=== PATIENT | female | born 1970 | race Caucasian/White ===

== ENCOUNTER 2017-02-13 15:31 | Emergency (ER) | payer OTHER ==
[~2017-02-13] VITALS: Ht 162.6 cm; Wt 94.3 kg
[2017-02-13 15:31] VITALS: BP_SYST 137
[~2017-02-13 15:31] MED LIST: ACYC800T PO; ASPI-1063 PO; FAMO20TA8 PO; PRED20TA PO; TRAM50TA92 PO
[2017-02-13] MEDS ORDERED: LORazepam 2 MG/ML VIAL (FOR ER USE) IVP ONE (16:15)
[2017-02-13] MEDS ORDERED: ASPIRIN 81 MG TAB.CHEW PO ONE (16:15)
[2017-02-13] MEDS ORDERED: ONDANSETRON HCL 4 MG/2 ML VIAL IVP ONE (16:30)
[2017-02-13 16:32] LABS: BASOPHILS % (AUTO) 0.6 % (0.0-2.0); EOSINOPHILS # (AUTO) 0.3 K/uL (0.0-0.4); EOSINOPHILS % (AUTO) 3.8 % (0.0-4.0); HEMATOCRIT 40.7 % (36-48); HEMOGLOBIN 14.2 g/dL (12.0-16.0); LYMPHOCYTES % (AUTO) 29.3 % (20.5-51.5); MEAN CORPUSCULAR HEMOGLOBIN 32 pg (27-31); MEAN CORPUSCULAR HGB CONC 35 % (32-36); MEAN CORPUSCULAR VOLUME 91 fL (79.0-98.0); MONOCYTES # (AUTO) 0.5 K/uL (0.0-1.0); MONOCYTES % (AUTO) 7.7 % (1.7-9.3); NEUTROPHILS # (AUTO) 4.1 K/uL (1.8-7.7); NEUTROPHILS % (AUTO) 58.6 % (40.0-70.0); PLATELET COUNT (AUTO) 281 K/uL (130-430); RED CELL DISTRIBUTION WIDTH 12.1 % (9.0-15.0); WHITE BLOOD COUNT (AUTO) 6.9 K/uL (4.8-10.8)
[2017-02-13 16:40] LABS: CALCIUM 8.5 mg/dL (8.4-11.0); CREATININE 0.77 mg/dL (0.55-1.30); POTASSIUM 3.3 mmol/L (3.5-5.1)
[2017-02-13 16:45] LABS: ALBUMIN 3.7 g/dL (3.4-4.8); TOTAL BILIRUBIN 0.4 mg/dL (0.0-1.0); TOTAL PROTEIN, SERUM 7.7 g/dL (6.4-8.3)
[2017-02-13 17:23] VITALS: BP_SYST 117
== END 2017-02-13 17:23 | disposition home or self-care (01) ==
LOC: SED 15:31
DX: F41.9 Anxiety disorder, unspecified (principal); R07.89 Other chest pain; R03.0 Elevated blood-pressure reading, without diagnosis of hypertension; R05 Cough; M79.602 Pain in left arm; G43.909 Migraine, unspecified, not intractable, without status migrainosus; Z90.49 Acquired absence of other specified parts of digestive tract; Z90.710 Acquired absence of both cervix and uterus
CPT/HCPCS: 36415; 71010; 80053; 81025; 84484; 85025; 93005; 96374; 96375; 99285; J2060; J2405

== ENCOUNTER 2018-07-01 09:02 | Emergency (ER) | payer OTHER ==
[~2018-07-01] VITALS: Ht 162.6 cm; Wt 95.3 kg
[~2018-07-01 09:02] MED LIST changes: -ASPI-1063 PO; +ASPI-1154 PO
[2018-07-01 09:08] VITALS: BP_SYST 145
--- NOTE | 2018-07-01 09:08 | NUR ---
Patient to ER bed 8 to gown for evaluation. Side rails up.
--- NOTE | 2018-07-01 09:10 | NUR ---
Pt complains of severe headached since yesterday afternoon. Pt states she took ibuprofen 800 mg with no relief. Pt is nauseous with sensitivity to light. Pt denies fever. No other injuries/complaints per patient or noted.
--- NOTE | 2018-07-01 09:11 | NUR ---
ER Dr. Briscoe at bedside examining patient.
[2018-07-01] MEDS ORDERED: PROCHLORPERAZINE EDISYLATE 10 MG/2 ML VIAL IM ONE (09:15)
[2018-07-01] MEDS ORDERED: KETOROLAC TROMETHAMINE 60 MG/2 ML VIAL IM ONE (09:15)
--- NOTE | 2018-07-01 09:28 | NUR ---
Medications were given, pt tolerated well. No adverse reaction, will continue to monitor.
--- NOTE | 2018-07-01 10:50 | NUR ---
Pt resting comfortably in hospital bed. Pt states headache has decreased and feels a little better.
[2018-07-01 11:57] VITALS: BP_SYST 127
--- NOTE | 2018-07-01 11:57 | NUR ---
Patient given written and verbal discharge instructions and verbalizes understanding. ER MD discussed with patient the results and treatment provided. Patient in stable condition. ID arm band removed. Rx of norco 5/325 #15 given. Patient educated on pain management and to follow up with PMD. Pain Scale 3/10. Opportunity for questions provided and answered. Medication side effect fact sheet provided.
== END 2018-07-01 11:57 | disposition home or self-care (01) ==
LOC: SED 09:02
DX: G43.909 Migraine, unspecified, not intractable, without status migrainosus (principal); I10 Essential (primary) hypertension; Z90.89 Acquired absence of other organs; Z90.49 Acquired absence of other specified parts of digestive tract; Z90.710 Acquired absence of both cervix and uterus; Z79.899 Other long term (current) drug therapy
CPT/HCPCS: 96372; 99284; J0780; J1885

== ENCOUNTER 2018-10-20 20:56 | Emergency (ER) | payer OTHER ==
[~2018-10-20] VITALS: Ht 162.6 cm; Wt 90.7 kg
[2018-10-20 21:03] VITALS: BP_SYST 150
--- NOTE | 2018-10-20 21:06 | NUR ---
Note андрейyang in EDM - 10/20/18 at 2114 by [email or web address] Pt brought by self, A&Ox4, pt presents to ER with neck pain and headache after mechanical fall , pt states she was squatting at the gym and she lost balance hitting excersise bar, skin pink and warm, respirations even and unlabored.
--- NOTE | 2018-10-20 21:07 | NUR ---
Patient to ER bed 08 to gown for evaluation. Side rails up.
--- NOTE | 2018-10-20 21:08 | NUR ---
Dr Macario at bedside examining patient
[2018-10-20] MEDS ORDERED: METOCLOPRAMIDE HCL 10 MG/2 ML VIAL IVP ONE (21:15)
[2018-10-20] MEDS ORDERED: MORPHINE 4 MG/ML INJ. SYRINGE IVP ONE (21:15)
--- NOTE | 2018-10-20 21:26 | NUR ---
PT medicated with Reglan IVP and Morphine IVP per MD order. Tolerated well. Pt placed on phototypesetting equipment monitor. Will cont. to monitor.
--- NOTE | 2018-10-20 21:37 | NUR ---
PT went to radiology via wheelchair.
--- NOTE | 2018-10-20 22:00 | NUR ---
Pt states she had a partial hysterectomy as a prior surgery.
[2018-10-20] MEDS ORDERED: KETOROLAC TROMETHAMINE 30 MG VIAL IVP ONE (22:15)
--- NOTE | 2018-10-20 22:27 | NUR ---
Pt states pain is 5/10. Medicated with Toradol IVP per MD order. Tolerated well. Will cont. to monitor.
[2018-10-20 22:52] VITALS: BP_SYST 150
--- NOTE | 2018-10-20 22:52 | NUR ---
Patient given written and verbal discharge instructions and verbalizes understanding. ER MD Dr. Amirah Dunbar discussed with patient the results and treatment provided. Patient in stable condition. ID arm band removed. IV catheter removed intact and dressing applied, no active bleeding. Rx of Emelle, robaxin, reglan given. Patient educated on pain management and to follow up with PMD within 2-3 days. Pain Scale 0/10. Opportunity for questions provided and answered. Medication side effect fact sheet provided.
== END 2018-10-20 22:52 | disposition home or self-care (01) ==
LOC: SED 20:56
DX: S10.93XA Contusion of unspecified part of neck, initial encounter (principal); G43.909 Migraine, unspecified, not intractable, without status migrainosus; Z90.49 Acquired absence of other specified parts of digestive tract; Z90.89 Acquired absence of other organs; Z90.710 Acquired absence of both cervix and uterus; Z79.899 Other long term (current) drug therapy; W18.09XA Striking against other object with subsequent fall, initial encounter; Y93.89 Activity, other specified; Y92.89 Other specified places as the place of occurrence of the external cause; Y99.8 Other external cause status
CPT/HCPCS: 70450; 72125; 96374; 96375; 99284; J1885; J2270; J2765

== ENCOUNTER 2019-05-28 20:58 | Emergency (ER) | payer OTHER ==
[~2019-05-28] VITALS: Ht 162.6 cm; Wt 90.7 kg
[2019-05-28 21:04] VITALS: BP_SYST 138
--- NOTE | 2019-05-28 22:00 | NUR ---
Patient to NOEMI Jimenes for evaluation.
--- NOTE | 2019-05-28 22:05 | NUR ---
Patient to ER via triage for evaluation of right elbow pain with headache x 2 days after having a non-syncopal trip and fall. No neck or back pain, no LOC reported. Patient is awake, alert and oriented in no acute distress, vital signs stable, respirations even and unlabored, skin warm and dry to touch. Patient able to ambulate without difficulty with slow, steady gait to Hallway bed, able to move all extremities. Awaiting evaluation by ER MD, will continue to observe and assess.
--- NOTE | 2019-05-28 22:15 | NUR ---
Patient moved to bed 8 to await MD evaluation.
[2019-05-28] MEDS ORDERED: MORPHINE 4 MG/ML INJ. SYRINGE IM ONE (22:30)
--- NOTE | 2019-05-28 22:30 | NUR ---
ER at bedside examining patient.
[2019-05-28 23:20] VITALS: BP_SYST 130
--- NOTE | 2019-05-28 23:20 | NUR ---
Patient given written and verbal discharge instructions and verbalizes understanding. ER MD discussed with patient the results and treatment provided. Patient in stable condition. ID arm band removed. Rx of Motrin given. Patient educated on pain management and to follow up with PMD. Pain Scale 0. Opportunity for questions provided and answered. Medication side effect fact sheet provided. Patient left ER in no acute distress, tolerating splint and sling, no adverse reaction noted to medication.
== END 2019-05-28 23:20 | disposition home or self-care (01) ==
LOC: SED 20:58
DX: S42.401A Unspecified fracture of lower end of right humerus, initial encounter for closed fracture (principal); G43.909 Migraine, unspecified, not intractable, without status migrainosus; Z79.899 Other long term (current) drug therapy; V00.131A Fall from skateboard, initial encounter; Y93.51 Activity, roller skating (inline) and skateboarding; Y92.009 Unspecified place in unspecified non-institutional (private) residence as the place of occurrence of the external cause; Y99.8 Other external cause status
CPT/HCPCS: 73080; 96372; 99283; J2270

== ENCOUNTER 2019-06-21 10:02 | Emergency (ER) | payer OTHER ==
[~2019-06-21] VITALS: Ht 162.6 cm; Wt 86.2 kg
[2019-06-21 10:09] VITALS: BP_SYST 119
--- NOTE | 2019-06-21 10:14 | NUR ---
Patient to ER bed 4 to gown for evaluation. Side rails up. Report given to Stas STRANGE.
--- NOTE | 2019-06-21 10:20 | NUR ---
NOEMI Gibson at bedside examining patient.
--- NOTE | 2019-06-21 10:25 | NUR ---
PT PRESENTS TO E C/O MID ABD PAIN X 3 DAYS W/ NAUSEA/VOMITING/DIARRHEA. PT HAS NO ACUTE DISTRESS NOTED.
[2019-06-21] MEDS ORDERED: ONDANSETRON HCL 4 MG/2 ML VIAL IVP ONE (10:30)
[2019-06-21] MEDS ORDERED: MORPHINE 4 MG/ML INJ. SYRINGE IVP ONE (10:30)
[2019-06-21] MEDS ORDERED: NACL 0.9% 1,000 ML IV ONE (10:30)
[2019-06-21 10:47] LABS: BASOPHILS # (AUTO) 0.2 K/uL (0.0-0.2); EOSINOPHILS # (AUTO) 0.1 K/uL (0.0-0.4); EOSINOPHILS % (AUTO) 1.3 % (0.0-4.0); HEMATOCRIT 43.1 % (36-48); HEMOGLOBIN 15.2 g/dL (12.0-16.0); LYMPHOCYTES # (AUTO) 1.6 K/uL (1.0-5.5); LYMPHOCYTES % (AUTO) 20.9 % (20.5-51.5); MEAN CORPUSCULAR HEMOGLOBIN 33 pg (27-31); MEAN CORPUSCULAR HGB CONC 35 % (32-36); MEAN CORPUSCULAR VOLUME 93 fL (79.0-98.0); MONOCYTES # (AUTO) 0.6 K/uL (0.0-1.0); MONOCYTES % (AUTO) 7.8 % (1.7-9.3); NEUTROPHILS # (AUTO) 5.3 K/uL (1.8-7.7); PLATELET COUNT (AUTO) 267 K/uL (130-430); RED BLOOD CELL COUNT(AUTO) 4.63 MIL/uL (4.2-6.2); RED CELL DISTRIBUTION WIDTH 12.3 % (9.0-15.0); WHITE BLOOD COUNT (AUTO) 7.8 K/uL (4.8-10.8)
--- NOTE | 2019-06-21 10:50 | NUR ---
Pt medicated tolerated well.Continuing to monitor.
[2019-06-21 10:54] LABS: CALCIUM 9.1 mg/dL (8.4-11.0); CREATININE 0.82 mg/dL (0.55-1.30); POTASSIUM 3.5 mmol/L (3.5-5.1)
[2019-06-21 10:58] LABS: ALBUMIN 3.7 g/dL (3.4-4.8); TOTAL BILIRUBIN 0.5 mg/dL (0.0-1.0)
--- NOTE | 2019-06-21 11:12 | NUR ---
PT REPORTS PAIN RESOLVING.
[2019-06-21] MEDS ORDERED: LOPERAMIDE HCL 2 MG CAPSULE PO ONE (11:30)
[2019-06-21 11:49] VITALS: BP_SYST 118
--- NOTE | 2019-06-21 11:51 | NUR ---
Patient given written and verbal discharge instructions and verbalizes understanding. ER MD discussed with patient the results and treatment provided. Patient in stable condition. ID arm band removed. IV catheter removed intact and dressing applied, no active bleeding. Rx of Imodium and Zofran given. Patient educated on pain management and to follow up with PMD. Pain Scale 0/10. Opportunity for questions provided and answered. Medication side effect fact sheet provided.
== END 2019-06-21 11:51 | disposition home or self-care (01) ==
LOC: SED 10:02
DX: R10.30 Lower abdominal pain, unspecified (principal); R11.2 Nausea with vomiting, unspecified; R19.7 Diarrhea, unspecified; G43.909 Migraine, unspecified, not intractable, without status migrainosus; R50.9 Fever, unspecified; Z90.49 Acquired absence of other specified parts of digestive tract; Z90.710 Acquired absence of both cervix and uterus; Z79.899 Other long term (current) drug therapy
CPT/HCPCS: 36415; 80053; 83690; 85025; 96361; 96374; 96375; 99283; J2270; J2405; J7030

== ENCOUNTER 2019-07-29 14:07 | Emergency (ER) | payer OTHER ==
[~2019-07-29] VITALS: Ht 162.6 cm; Wt 77.1 kg
--- NOTE | 2019-07-29 14:08 | NUR ---
Placed in room 02 . Placed on cardiac surgeon, blood pressure machine and pulse oximeter. To gown for exam. Side rails up. Report given to Jina STRANGE
[2019-07-29 14:10] VITALS: BP_SYST 165
[2019-07-29] MEDS ORDERED: methylPREDNISolone SOD SUCC/PF 62.5 MG/ML VIAL IM ONE (14:15)
--- NOTE | 2019-07-29 14:15 | NUR ---
Patient presented to ER with right side facial droopning and migraine pain. Patient A&Ox4, afebrile, ambulatory to ER, arrived with , pain 06/01, denies N/V/D. NIH stroke scale assessment complete upon arrival. Patient states migraine started yesterday, patient self medicated with Maxatrol this am. Patient states facial drooping started at 0630 this am but "got worse" while she was at work and decided to seek medical attention. PAtient states she has a Hx of migraines.
--- NOTE | 2019-07-29 15:17 | NUR ---
ER Dr. Girard at bedside examining patient.
[2019-07-29] MEDS ORDERED: KETOROLAC TROMETHAMINE 60 MG/2 ML VIAL IM ONE (15:30)
[2019-07-29 17:02] VITALS: BP_SYST 128
--- NOTE | 2019-07-29 17:04 | NUR ---
Patient given written and verbal discharge instructions and verbalizes understanding. ER MD discussed with patient the results and treatment provided. Patient in stable condition. ID arm band removed. Rx of Prednisone, Acyclovir, Motrin given. Patient educated on pain management and to follow up with PMD. Pain Scale 0/10 Opportunity for questions provided and answered. Medication side effect fact sheet provided.
== END 2019-07-29 14:08 | disposition home or self-care (01) ==
LOC: SED 14:07
DX: G51.0 Bell's palsy (principal); Z79.899 Other long term (current) drug therapy
CPT/HCPCS: 70450; 81025; 96372; 99284; J1885; J2930

== ENCOUNTER 2022-01-14 15:14 | Emergency (ER) | payer OTHER ==
[~2022-01-14] VITALS: Ht 162.6 cm; Wt 93.4 kg
[~2022-01-14 15:14] MED LIST changes: +ACYC-133 PO; -ACYC800T PO; -ASPI-1154 PO; +ASPI-1457 PO
[2022-01-14 15:27] VITALS: BP_SYST 163
[2022-01-14] MEDS ORDERED: MORPHINE 4 MG INJ. 4 MG/ML VIAL IVP ONE (16:00)
[2022-01-14] MEDS ORDERED: ONDANSETRON HCL 4 MG/2 ML VIAL IVP ONE (16:00)
[2022-01-14] MEDS ORDERED: NACL 0.9% 1,000 ML IV ONE (16:00)
[2022-01-14 16:43] LABS: BASOPHILS # (AUTO) 0.1 K/uL (0.0-0.2); BASOPHILS % (AUTO) 0.7 % (0.0-2.0); EOSINOPHILS % (AUTO) 0.2 % (0.0-4.0); HEMATOCRIT 45.9 % (36-48); HEMOGLOBIN 15.7 g/dL (12.0-16.0); MEAN CORPUSCULAR HEMOGLOBIN 31 pg (27-31); MEAN CORPUSCULAR HGB CONC 34 % (32-36); MEAN CORPUSCULAR VOLUME 91 fL (79.0-98.0); MONOCYTES # (AUTO) 0.8 K/uL (0.0-1.0); MONOCYTES % (AUTO) 6.5 % (1.7-9.3); NEUTROPHILS # (AUTO) 9.8 K/uL (1.8-7.7); NEUTROPHILS % (AUTO) 76.6 % (40.0-70.0); PLATELET COUNT (AUTO) 279 K/uL (130-430); RED BLOOD CELL COUNT(AUTO) 5.06 MIL/uL (4.2-6.2); RED CELL DISTRIBUTION WIDTH 12.5 % (9.0-15.0); WHITE BLOOD COUNT (AUTO) 12.8 K/uL (4.8-10.8)
[2022-01-14 16:56] LABS: BILIRUBIN,URINE NEGATIVE (NEGATIVE); BLOOD, URINE NEGATIVE (NEGATIVE); CLARITY/URINE CLEAR (CLEAR); COLOR,URINE YELLOW (YELLOW); GLUCOSE,URINE NEGATIVE (NEGATIVE); KETONES,URINE NEGATIVE (NEGATIVE); LEUKOCYTE ESTERASE ,URINE NEGATIVE (NEGATIVE); NITRITE, URINE NEGATIVE (NEGATIVE); PROTEIN URINE NEGATIVE (NEGATIVE); UROBILINOGEN,URINE 0.2 (0.2-1.0)
[2022-01-14 17:09] LABS: CALCIUM 8.7 mg/dL (8.4-11.0); CREATININE 0.65 mg/dL (0.55-1.30); POTASSIUM 3.5 mmol/L (3.5-5.1)
[2022-01-14 17:20] LABS: ALBUMIN 3.9 g/dL (3.4-4.8); TOTAL BILIRUBIN 0.4 mg/dL (0.0-1.0)
[2022-01-14] MEDS ORDERED: ONDA-8 TL (18:57)
[2022-01-14 19:15] VITALS: BP_SYST 146
== END 2022-01-14 19:15 | disposition home or self-care (01) ==
LOC: SED 15:14
DX: R10.33 Periumbilical pain (principal); R11.10 Vomiting, unspecified; R19.7 Diarrhea, unspecified; Z79.899 Other long term (current) drug therapy
CPT/HCPCS: 36415; 80053; 81003; 81025; 83690; 84702; 85025; 96361; 96374; 96375; 99284; J2270; J2405; J7030

== ENCOUNTER 2022-12-30 15:13 | Emergency (ER) | payer OTHER ==
[~2022-12-30] VITALS: Ht 157.5 cm; Wt 94.8 kg
[~2022-12-30 15:13] MED LIST changes: +ONDA-8 TL
[2022-12-30 15:15] VITALS: BP_SYST 156
--- NOTE | 2022-12-30 15:19 | NUR ---
UPON ASSESSMENT, PT HAVING CVA SYMPTOMS, MD STALLWORTH CALLED TO TRIAGE FOR POSSIBLE STROKE. UPON MD STALLWORTH ASSESSMENT, CALLED CODE STROKE. PT TO ER BED 5. CARE REPALIE DRIVER.
--- NOTE | 2022-12-30 15:21 | NUR ---
PT TAKEN TO CT LAST KNOWN WELL TIME WAS 1420 ACCORDING TO . IS AT BEDSIDE. [facility] NEUROLOGIST CONSULT HAS BEEN COMPLETED. VSS, PT HAS SLURRED SPEECH LEFT FACIAL DROOP UNDERSTANDABLE SPEECH, WEAKNESS TO LEFT ARM AND NUMBNESS TO LEFT LEG. PT STATES SHE HAS ABD PAIN THAT RADIATES TO BACK (FLANK AREA) AWAITING NEW ORDERS FROM NEURO AND ED DR. DANIELA CHAN TO MONITOR.
[2022-12-30] MEDS ORDERED: IOHEXOL 350 mgI/mL, 150 ML INFUS..BTL IV ONE (15:35)
[2022-12-30 15:42] LABS: BASOPHILS # (AUTO) 0.1 K/uL (0.0-0.2); BASOPHILS % (AUTO) 1.1 % (0.0-2.0); EOSINOPHILS # (AUTO) 0.1 K/uL (0.0-0.4); EOSINOPHILS % (AUTO) 0.9 % (0.0-4.0); HEMATOCRIT 44.4 % (36-48); HEMOGLOBIN 15.7 g/dL (12.0-16.0); LYMPHOCYTES # (AUTO) 1.9 K/uL (1.0-5.5); LYMPHOCYTES % (AUTO) 23.8 % (20.5-51.5); MEAN CORPUSCULAR HEMOGLOBIN 33 pg (27-31); MEAN CORPUSCULAR HGB CONC 35 % (32-36); MEAN CORPUSCULAR VOLUME 93 fL (79.0-98.0); MONOCYTES # (AUTO) 0.5 K/uL (0.0-1.0); MONOCYTES % (AUTO) 6.2 % (1.7-9.3); NEUTROPHILS # (AUTO) 5.3 K/uL (1.8-7.7); PLATELET COUNT (AUTO) 242 K/uL (130-430); RED CELL DISTRIBUTION WIDTH 12.5 % (9.0-15.0); WHITE BLOOD COUNT (AUTO) 7.8 K/uL (4.8-10.8)
[2022-12-30] MEDS ORDERED: methylPREDNISolone SOD SUCC/PF 62.5 MG/ML VIAL IVP ONE (15:45)
[2022-12-30] MEDS ORDERED: DIPHENHYDRAMINE INJ 50 MG/ML VIAL IVP ONE (15:45)
[2022-12-30 16:04] LABS: ANION GAP 10 (5-15); CALCIUM 9.5 mg/dL (8.4-11.0); CHLORIDE 103 mmol/L (98-107); CREATININE 0.76 mg/dL (0.55-1.30); GLUCOSE 123 mg/dL (70-99); UREA NITROGEN, BLOOD 13 mg/dL (8-21)
[2022-12-30 16:13] LABS: ALANINE AMINOTRANSFERASE 83 U/L (12-78); ALBUMIN 4.1 g/dL (3.4-4.8); ASPARTATE AMINOTRANSFERASE 92 U/L (10-37); TOTAL BILIRUBIN 0.7 mg/dL (0.0-1.0)
[2022-12-30 16:14] LABS: GFR AFRICAN AMERICAN 104 mL/min (>90)
[2022-12-30] MEDS ORDERED: ONDANSETRON HCL 4 MG/2 ML VIAL IVP ONE (16:30)
[2022-12-30] MEDS ORDERED: MORPHINE 4 MG INJ. 4 MG/ML VIAL IVP ONE ×2 (16:30→19:15)
--- NOTE | 2022-12-30 18:11 | NUR ---
PT RESTING PAIN HAS LESSENED ACCORDING TO PT. WILL CONT TO MONITOR.
--- NOTE | 2022-12-30 19:05 | NUR ---
PT HAS BEEN NOTIFIED OF PLAN OF CARE, PT STATES SHE IS HAVING 8/10 FLANK PAIN REOCCURING, MD NOTIFIED. VSS, NAD, EVEN AND UNLABORED RESPIRATIONS.
--- NOTE | 2022-12-30 19:27 | NUR ---
REPORT TO ANDREA STRANGE
--- NOTE | 2022-12-30 20:50 | NUR ---
Male visitor present in room with patient.
[2022-12-30 23:45] VITALS: BP_SYST 120
--- NOTE | 2022-12-30 23:51 | NUR ---
Patient to be transferred to [facility]. Is being transferred due to insurance purposes. Receiving facility has accepting physician and available space. ER physician has signed transfer form. Patient or responsible republican has agreed to transfer and signed form. Patient belongings inventoried and will be sent with patient. Copy of nursing notes, lab reports, EKG, Physicians Orders and X-rays to be sent with patient. Report called to ALIE Fong at receiving facility. Receiving physician is Dr. Vaughn. [facility] is present at this time.
== END 2022-12-30 23:52 | disposition short-term general hospital (02) ==
LOC: SED 15:13
DX: I63.9 Cerebral infarction, unspecified (principal); R53.1 Weakness; R07.9 Chest pain, unspecified; R55 Syncope and collapse; R20.2 Paresthesia of skin; I10 Essential (primary) hypertension; Z79.899 Other long term (current) drug therapy; Z20.822 Contact with and (suspected) exposure to COVID-19
CPT/HCPCS: 99291; 70496; 96374; 76705; 71045; 96375; 87426; 80053; 85025; 86886; 86900; 86901; 84484; 36415; 93005; 70498; 99292; 96376; 70450; 76376; J2405; J2270; Q9967

== ENCOUNTER 2023-05-10 19:57 | Emergency (ER) | payer OTHER ==
[~2023-05-10] VITALS: Ht 162.6 cm; Wt 95.3 kg
--- NOTE | 2023-05-10 20:10 | NUR ---
PT TO CT VIA [facility]YALA. CT AND CHEST XRAY COMPLETED. PT BACK TO ROOM 3. EKG AND IV ACCESS GAINED. AWAITING ADDITIONAL ORDERS
--- NOTE | 2023-05-10 20:22 | NUR ---
MARLEN FAUSTIN CALLED AT 2004, LEFT SIDED FACIAL DROOP NOTED ON EXAMINATION X1 HOUR, PATIENT PRESENTS WITH CHEST PAIN, LEFT SIDED WEAKNESS, LEFT SHOULDER PAIN X1 DAY, DRIFT NOTED WITH LEFT SIDE EXTREMITIES, REPORT GIVEN TO JAEL STRANGE, PATIENT PLACED IN ED BED 3
[2023-05-10 20:24] VITALS: BP_SYST 124
[2023-05-10] MEDS ORDERED: iohexoL 350 mgI/mL, 100 ML INFUS..BTL IV ONE (20:36)
[2023-05-10 20:46] LABS: BASOPHILS # (AUTO) 0.1 K/uL (0.0-0.2); BASOPHILS % (AUTO) 0.8 % (0.0-2.0); EOSINOPHILS # (AUTO) 0.1 K/uL (0.0-0.4); EOSINOPHILS % (AUTO) 0.9 % (0.0-4.0); HEMATOCRIT 44.3 % (36-48); HEMOGLOBIN 15.6 g/dL (12.0-16.0); LYMPHOCYTES % (AUTO) 33.4 % (20.5-51.5); MEAN CORPUSCULAR HEMOGLOBIN 33 pg (27-31); MEAN CORPUSCULAR HGB CONC 35 % (32-36); MEAN CORPUSCULAR VOLUME 95 fL (79.0-98.0); MONOCYTES # (AUTO) 0.8 K/uL (0.0-1.0); MONOCYTES % (AUTO) 8.9 % (1.7-9.3); PLATELET COUNT (AUTO) 245 K/uL (130-430); RED BLOOD CELL COUNT(AUTO) 4.69 MIL/uL (4.2-6.2); RED CELL DISTRIBUTION WIDTH 12.5 % (9.0-15.0)
[2023-05-10 21:00] LABS: INR 1.1 (0.8-1.2)
[2023-05-10 21:01] LABS: ALANINE AMINOTRANSFERASE 63 U/L (12-78); ALBUMIN 3.6 g/dL (3.4-4.8); ANION GAP 4 (5-15); ASPARTATE AMINOTRANSFERASE 81 U/L (10-37); CALCIUM 8.4 mg/dL (8.4-11.0); CHLORIDE 103 mmol/L (98-107); CREATININE 0.88 mg/dL (0.55-1.30); GFR AFRICAN AMERICAN 87 mL/min (>90); GLUCOSE 94 mg/dL (70-99); TOTAL BILIRUBIN 0.4 mg/dL (0.0-1.0); UREA NITROGEN, BLOOD 13 mg/dL (8-21)
--- NOTE | 2023-05-10 21:15 | NUR ---
PT BACK FROM CT. PLACED BACK ON CARDIAC MONITORS. AWAITING ADDITIONAL ORDERS.
[2023-05-10] MEDS ORDERED: ASPIRIN 325 MG TABLET PO ONE (21:45)
[2023-05-10] MEDS ORDERED: ACETAMINOPHEN 500 MG TABLET PO ONE (22:30)
[2023-05-10] MEDS ORDERED: METOCLOPRAMIDE HCL 10 MG TABLET PO ONE (22:30)
--- NOTE | 2023-05-10 23:15 | NUR ---
MD AT BEDSIDE TO DISCUSS FINDINGS AND TRANSFER PLANS
[2023-05-10 23:27] LABS: BILIRUBIN,URINE NEGATIVE (NEGATIVE); BLOOD, URINE NEGATIVE (NEGATIVE); COLOR,URINE YELLOW (YELLOW); GLUCOSE,URINE NEGATIVE (NEGATIVE); KETONES,URINE NEGATIVE (NEGATIVE); LEUKOCYTE ESTERASE ,URINE TRACE (NEGATIVE); NITRITE, URINE NEGATIVE (NEGATIVE); PROTEIN URINE NEGATIVE (NEGATIVE); UROBILINOGEN,URINE 0.2 (0.2-1.0)
[2023-05-10 23:35] LABS: CLARITY/URINE SLIGHTLY CLOUDY (CLEAR)
[2023-05-10 23:42] LABS: BACTERIA,URINE RARE /HPF (None Seen); RBC,URINE 0-3 /HPF (0-3); TRICHOMONAS,URINE Rare /HPF (None Seen)
[2023-05-10 23:50] VITALS: BP_SYST 150
[2023-05-10 23:54] LABS: BARBITURATE, URINE NEGATIVE (NEG <=200); BENZODIAZEPINE, URINE NEGATIVE (NEG <=150); CANNABINOID, URINE NEGATIVE (NEG <=50); COCAINE, URINE NEGATIVE (NEG <=150); METHAMPHETAMINES SCREEN,URINE NEGATIVE (NEG <=500); OPIATE, URINE POSITIVE (NEG <=100); PHENCYCLIDINE SCREEN,URINE NEGATIVE (NEG <=25); UR TRICYCLIC ANTIDEPRESSANTS NEGATIVE (NEG <=300); URINE AMPHETAMINE NEGATIVE (NEG <=500); URINE METHADONE NEGATIVE (NEG <=200); URINE OXYCODONE SCREEN NEGATIVE (NEG <=100); URINE PROPOXYPHENE SCREEN NEGATIVE (NEG <=300)
== END 2023-05-10 23:50 | disposition short-term general hospital (02) ==
LOC: SED 19:57
DX: G45.9 Transient cerebral ischemic attack, unspecified (principal); R29.810 Facial weakness; M62.81 Muscle weakness (generalized); R47.1 Dysarthria and anarthria; I10 Essential (primary) hypertension; Z79.899 Other long term (current) drug therapy
CPT/HCPCS: 99291; 70496; 71045; 80307; 80053; 82962; 85025; 85610; 85730; 86886; 86900; 86901; 84484; 36415; 70498; 70450; 81000; 80048; 76376; J8597; Q9967; 93005